=== PATIENT | male | born 1950 | race Caucasian/White ===

== ENCOUNTER → 2017-10-25 | Outpatient (CLI) | payer MEDICARE ==
[~2017-10-25] MED LIST: LEVOTHYROXINE75 MCG PO; NOHOMEMEDS; PREDNISONE5 MG PO
== END | disposition home or self-care (01) ==
LOC: CDC 14:06
DX: Z01.810 Encounter for preprocedural cardiovascular examination (principal); N43.42 Spermatocele of epididymis, multiple; I44.4 Left anterior fascicular block; J98.4 Other disorders of lung
CPT/HCPCS: 93000